=== PATIENT | male | born 1980 | race Caucasian/White ===

== ENCOUNTER → 2022-07-22 | Outpatient (CLI) | payer BC ==
--- NOTE | 2022-07-23 07:57 | US ---
EXAMINATION TYPE: US scrotum with doppler. Grayscale and color Doppler Duplex imaging performed of mandy flood scrotum. DATE OF EXAM: 07/22/2022 COMPARISON: NONE CLINICAL HISTORY: N50.819 testicular pain unspec. Dull pain within bilateral testicles x 1.5 months. Blood in semen. Hx vasectomy about 12 years ago. EXAM MEASUREMENTS: TESTICLES: Right Testicle: 4.6 x 3.1 x 2.4 cm Left Testicle: 4.4 x 3.0 x 2.4 cm EPIDIDYMIS HEAD: Right Epididymis: 0.7 x 0.9 x 1.1 cm Left Epididymis: 0.6 x 0.9 x 1.0 cm Doppler performed to assess for testicular vascularity; bilateral color flow and waveforms are seen. Presence of hydroceles: Right: 2.6 x 2.7 x 1.2 cm. Left appears to have internal echoes: 3.2 x 2.6 x 1.0 cm. Presence of varicoceles: Prominent vessels seen bilaterally that measure up to 0.25 cm on the right and 0.28 cm. IMPRESSION: 1. No evidence of testicular torsion or mass. 2. Bilateral small hydroceles with debris in the left. 3. Bilateral varicoceles.
== END | disposition home or self-care (01) ==
LOC: RADUSWWP 16:02
PROVIDERS: ATTEND Family Medicine
DX: N50.819 Testicular pain, unspecified (principal); N43.3 Hydrocele, unspecified; I86.1 Scrotal varices
CPT/HCPCS: 76870; 93975

== ENCOUNTER → 2022-09-16 | Outpatient (CLI) | payer BC ==
--- NOTE | 2022-09-16 08:20 | US ---
EXAMINATION TYPE: US prostate transrectal DATE OF EXAM: 09/16/2022 COMPARISON: NONE CLINICAL HISTORY: R36.1 HEMATOSPERMIA. hematospermia for 4 months This examination was performed using the transrectal probe. EXAM MEASUREMENTS: Gland Size: 4.5 x 2.0 x 4.6cm Volume: 22.0 ml Predicted PSA: 2.6 ml Actual PSA (if available):not available Heterogeneous gland. No evidence of discrete nodule within peripheral zone IMPRESSION: No suspicious nodules seen. Correlate with PSA. Predicted PSA = volume x 0.12 ng/ml Calculated Volume = 0.5236 x L x W x H
--- NOTE | 2022-09-16 08:21 | US ---
EXAMINATION TYPE: US abdomen limited DATE OF EXAM: 09/16/2022 COMPARISON: NONE CLINICAL HISTORY: R36.1 HEMATOSPERMIA. Hematospermia for 4 months, RUQ tenderness TECHNIQUE: Multiple sonographic images of the right upper quadrant are obtained. FINDINGS: EXAM MEASUREMENTS: Liver Length: 15.0 cm Gallbladder Wall: 0.2 cm CBD: 0.3 cm Right Kidney: 10.5 x 4.8 x 4.4 cm Pancreas: Obscured by bowel gas Liver: wnl Gallbladder: non-mobile hyperechoic area = 0.5cm, probable polyp Evidence for sonographic Jackson's sign: no CBD: wnl Right Kidney: no evidence of hydronephrosis IMPRESSION: Probable gallbladder polyp. Otherwise unremarkable study.
== END | disposition home or self-care (01) ==
LOC: RADUSWWP 07:05
PROVIDERS: ATTEND Urology
DX: R36.1 Hematospermia (principal); R10.811 Right upper quadrant abdominal tenderness
CPT/HCPCS: 76705; 76872